=== PATIENT | male | born 1980 | race Caucasian/White ===

== ENCOUNTER 2019-08-31 03:38 | Emergency (ER) | payer OTHER ==
[2019-08-31 03:46] VITALS: BP 135/88; PULSE 18; RESP 70; TEMP 97.9
--- NOTE | 2019-08-31 04:03 | ED ---
Back Pain HPI - General Chief Complaint: Back Pain/Injury Stated Complaint: Back pain Time Seen by Provider: 08/31/19 04:00 Source: patient, RN notes reviewed, old records reviewed Limitations: no limitations - History of Present Illness Initial Comments: This is a 39-year-old male to the ER for evaluation patient has left scapular pain while lifting. Tenderness with full movement or range of motion of left arm. No nerve issues able to hold the left, patient has current pain controlled with some aspirin but pain is worse when he lifts or moves. Patient does have the weekend off does not reveal need time off from work note for medications no shortness breath or chest MD Complaint: back pain, back injury -: hour(s) Similar Symptoms Previously: No Place: work Radiation: none Severity: mild Severity scale (1-10): 3 Quality: sharp, aching Consistency: constant Improves With: none Worsens With: movement Context: while lifting Associated Symptoms: denies other symptoms - Related Data Previous Rx's Medication Instructions Recorded Naproxen [Naprosyn] 500 mg PO Q12HR PRN #30 tab 08/31/19 Allergies Allergy/AdvReac Type Severity Reaction Status Date / Time No Known Allergies Allergy Verified 08/31/19 03:46 Review of Systems ROS Statement: Those systems with pertinent positive or pertinent negative responses have been documented in the HPI. ROS Other: All systems not noted in ROS Statement are negative. Past Medical History Past Medical History: No Reported History History of Any Multi-Drug Resistant Organisms: None Reported Past Surgical History: No Surgical Hx Reported Smoking Status: Never smoker Past Alcohol Use History: Occasional Past Drug Use History: None Reported General Exam General appearance: alert, in no apparent distress Head exam: Present: atraumatic, normocephalic, normal inspection Eye exam: Present: normal appearance, PERRL, EOMI. Absent: scleral icterus, conjunctival injection, periorbital swelling ENT exam: Present: normal exam, mucous membranes moist Neck exam: Present: normal inspection. Absent: tenderness, meningismus, lymphadenopathy Respiratory exam: Present: normal lung sounds bilaterally. Absent: respiratory distress, wheezes, rales, rhonchi, stridor Cardiovascular Exam: Present: regular rate, normal rhythm, normal heart sounds. Absent: systolic murmur, diastolic murmur, rubs, gallop, clicks GI/Abdominal exam: Present: soft, normal bowel sounds. Absent: distended, tenderness, guarding, rebound, rigid Extremities exam: Present: normal inspection, full ROM, normal capillary refill. Absent: tenderness, pedal edema, joint swelling, calf tenderness Back exam: Present: normal inspection, other (right scaular tenderness with movement) Neurological exam: Present: alert, oriented X3, CN II-XII intact Psychiatric exam: Present: normal affect, normal mood Skin exam: Present: warm, dry, intact, normal color. Absent: rash Course Vital Signs 08/31/19 03:44 Temperature 97.9 F Pulse Rate 18 L Respiratory 70 H Rate Blood Pressure 135/88 O2 Sat by Pulse 97 Oximetry - Reevaluation(s) Reevaluation #1: 08/31/19 04:10 Medical records reviewed Reevaluation #2: 08/31/19 04:10 Patient has good pain control no distress Medical Decision Making - Medical Decision Making 39 male to the ER for evaluation of back pain pain is improved here in the ER patient given anti-inflammatory for discharge and will be discharged home Disposition Clinical Impression: Mechanical back pain, Thoracic back pain Disposition: HOME SELF-CARE Condition: Good Instructions (If sedation given, give patient instructions): Acute Low Back Pain (ED) Prescriptions: Naproxen [Naprosyn] 500 mg PO Q12HR PRN #30 tab PRN Reason: Pain Is patient prescribed a controlled substance at d/c from ED?: No Referrals: Dustin Wade MD [Primary Care Provider] - 1-2 days
[2019-08-31] MEDS ORDERED: KETOROLAC 60 MG/2 ML VIAL IM STA (04:08)
[2019-08-31] MEDS ORDERED: ACETAMINOPHEN TAB 500 MG TAB PO STA (04:08)
== END 2019-08-31 04:42 | disposition home or self-care (01) ==
LOC: EC 03:38
DX: M54.6 Pain in thoracic spine (principal); M54.9 Dorsalgia, unspecified
CPT/HCPCS: 96372; 99283; J1885

== ENCOUNTER 2020-02-08 11:59 | Emergency (ER) | payer OTHER ==
--- NOTE | 2020-02-08 12:39 | CT ---
EXAMINATION TYPE: CT brain wo con DATE OF EXAM: 02/08/2020 COMPARISON: HISTORY: Trauma today with head injuries, pain CT DLP: 1114.4 mGycm. Automated Exposure Control for Dose Reduction was Utilized. TECHNIQUE: CT scan of the head is performed without contrast. FINDINGS: There is no acute intracranial hemorrhage, mass effect, or midline shift identified. Focu s of low-attenuation present within the right parietal lobe white matter on axial image 35 measures a pproximately 9 mm. There is mild inferior cerebellar tonsillar ectopia. The ventricles and sulci are within normal limits in size. The globes are intact and the visualized sinuses are remarkable for in flammatory change within the bilateral maxillary sinuses, ethmoid air cells. IMPRESSION: No acute intracranial hemorrhage, mass effect, or midline shift is seen. Nonspecific whi te matter demyelination. Consider brain MRI as indicated. Sinus disease.
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
[2020-02-08] MEDS ORDERED: LIDOCAINE 1% INJ 10MG/ML (20 ML MDV) SQ ONE (12:51)
[2020-02-08 13:29] VITALS: BP 138/81; PULSE 77; RESP 18; TEMP 97.8
== END 2020-02-08 13:28 | disposition home or self-care (01) ==
LOC: EC 11:59
DX: S01.81XA Laceration without foreign body of other part of head, initial encounter (principal); R90.89 Other abnormal findings on diagnostic imaging of central nervous system; W22.09XA Striking against other stationary object, initial encounter; Y92.69 Other specified industrial and construction area as the place of occurrence of the external cause; Y99.0 Civilian activity done for income or pay
CPT/HCPCS: 70450; 99283; 12011; J2001

== ENCOUNTER 2020-10-24 01:42 | Emergency (ER) | payer OTHER ==
[2020-10-24 01:50] VITALS: BP 127/81; PULSE 73; RESP 20; TEMP 97.9
--- NOTE | 2020-10-24 01:54 | ED ---
Back Pain HPI - General Chief Complaint: Back Pain/Injury Stated Complaint: [facility]/Back injury Time Seen by Provider: 10/24/20 01:52 Source: patient, RN notes reviewed, old records reviewed Limitations: no limitations - History of Present Illness Initial Comments: This is a 4-year-old male DF for evaluation. Patient has a for evaluation of back injury back injury at work. Patient presents result power, able to walk amply without difficulty. Back pain and back hasn't, muscle spasm. Patient denying drugs or alcohol, no history of chronic back pain or trauma MD Complaint: back pain, back injury -: hour(s) Similar Symptoms Previously: Yes Place: work Radiation: none Severity: mild Severity scale (1-10): 3 Quality: dull, aching Consistency: intermittent Improves With: none Worsens With: movement Context: while lifting, turning/twisting Associated Symptoms: denies other symptoms - Related Data Previous Rx's Medication Instructions Recorded Naproxen [Naprosyn] 500 mg PO Q12HR PRN #30 tab 08/31/19 Allergies Allergy/AdvReac Type Severity Reaction Status Date / Time No Known Allergies Allergy Verified 10/24/20 01:50 Review of Systems ROS Statement: Those systems with pertinent positive or pertinent negative responses have been documented in the HPI. ROS Other: All systems not noted in ROS Statement are negative. Past Medical History Past Medical History: No Reported History History of Any Multi-Drug Resistant Organisms: None Reported Past Surgical History: No Surgical Hx Reported Past Psychological History: No Psychological Hx Reported Smoking Status: Never smoker Past Alcohol Use History: Occasional Past Drug Use History: None Reported General Exam Limitations: no limitations General appearance: alert, in no apparent distress Head exam: Present: atraumatic, normocephalic, normal inspection Eye exam: Present: normal appearance, PERRL, EOMI. Absent: scleral icterus, conjunctival injection, periorbital swelling ENT exam: Present: normal exam, mucous membranes moist Neck exam: Present: normal inspection. Absent: tenderness, meningismus, lymphadenopathy Respiratory exam: Present: normal lung sounds bilaterally. Absent: respiratory distress, wheezes, rales, rhonchi, stridor Cardiovascular Exam: Present: regular rate, normal rhythm, normal heart sounds. Absent: systolic murmur, diastolic murmur, rubs, gallop, clicks GI/Abdominal exam: Present: soft, normal bowel sounds. Absent: distended, tenderness, guarding, rebound, rigid Extremities exam: Present: normal inspection, full ROM, normal capillary refill. Absent: tenderness, pedal edema, joint swelling, calf tenderness Back exam: Present: normal inspection Neurological exam: Present: alert, oriented X3, CN II-XII intact Psychiatric exam: Present: normal affect, normal mood Skin exam: Present: warm, dry, intact, normal color. Absent: rash Course Vital Signs 10/24/20 01:46 Temperature 97.9 F Pulse Rate 73 Respiratory 20 Rate Blood Pressure 127/81 O2 Sat by Pulse 96 Oximetry - Reevaluation(s) Reevaluation #1: 10/24/20 01:53 Medical records reviewed Reevaluation #2: 10/24/20 01:53 Pain improved Reevaluation #3: 10/24/20 01:53 Patient given clearance to return to work Medical Decision Making - Medical Decision Making 40 male DF for evaluation of work-related back pain. No acute distress here in the ER. Pain is controlled and patient can be discharged home Disposition Clinical Impression: Mechanical back pain, Strain of lumbar region Disposition: HOME SELF-CARE Condition: Good Instructions (If sedation given, give patient instructions): Acute Low Back Pain (ED) Is patient prescribed a controlled substance at d/c from ED?: No Referrals: Dustin Wade MD [Primary Care Provider] - 1-2 days
[2020-10-24] MEDS ORDERED: KETOROLAC 15 MG/ML 1 ML VIAL IM STA (02:22)
[2020-10-24] MEDS ORDERED: dexAMETHasone 2 MG TAB PO STA (02:22)
== END 2020-10-24 03:30 | disposition home or self-care (01) ==
LOC: EC 01:42
DX: S39.012A Strain of muscle, fascia and tendon of lower back, initial encounter (principal); X50.0XXA Overexertion from strenuous movement or load, initial encounter; Y99.0 Civilian activity done for income or pay
CPT/HCPCS: 99282; J8540